=== PATIENT | female | born 1995 | race Caucasian/White ===

== ENCOUNTER 2020-10-18 16:28 | Emergency (ER) | payer OTHER, SELFPAY ==
[2020-10-18 16:36] VITALS: BP 110/68; PULSE 116; RESP 18; TEMP 36.8; O2SAT 99
--- NOTE | 2020-10-18 17:00 | ED.EAR ---
HPI - Ear Problem General Chief complaint: Ear Stated complaint: Ear pain Time Seen by Provider: 10/18/20 17:00 Source: patient Mode of arrival: ambulatory Limitations: no limitations History of Present Illness HPI Narrative: Landy Landaverde is a 24 yo female who comes to express care with c/o Rear pain x 2 weeks - has been using q tips and cotton balls to clean out ear.States left ear has discharge; right is considerably is improved Related Data Allergies Allergy/AdvReac Type Severity Reaction Status Date / Time codeine Allergy Swelling Verified 10/18/20 16:47 of Lip/Tongue/Throat sertraline [From Zoloft] AdvReac Other Verified 10/18/20 16:48 Review of Systems Review of Systems: Narrative: CONSTITUTIONAL: Denies fever, chills, sweats. EYES: Denies visual changes, redness, discharge. ENT: Denies rhinorrhea, congestion, sore throat, right otalgia. Left ear healing CARDIOVASCULAR: Denies chest pain, palpitations, edema. RESPIRATORY: Denies dyspnea, wheezing, cough GASTROINTESTINAL: Denies abdominal pain, nausea, vomiting, diarrhea. GENITOURINARY: Denies dysuria, hematuria, abnormal discharge SKIN: Denies rash or itching. NEUROLOGIC: Denies numbness, or focal weakness. PSYCHIATRIC: Denies anxiety or depression. PMFSH Past Medical History Medical History (Updated 10/18/20 @ 17:19 by Maureen Carranza CNP) Alcoholism Family History Family History Other Diabetes mellitus Hypertension Social History Social History (Updated 10/18/20 @ 17:20 by Maureen Carranza CNP) Smoking packs per day: 0.5 Smoking cigarettes per day: 10.0 Smoking status: Current every day smoker Alcohol intake: former Alcohol use details: recovering alcoholic Comments At time of signature, I agree with nursing past medical, surgical, social and family history. There is no relevant family history pertinent to the presenting complaint. Exam Narrative: Exam Narrative: GENERAL: This is a well-nourished, well-developed patient, in mild distress. HEAD: normocephalic, atraumatic. EYES: PERRL. Sclera clear/white. Vision is grossly intact. EARS: External ears normal, left ear canal is reddened right ear canal has large piece of cotton stuffed up in the canal causing pain and drainage. Unable to visualize right TM. Hearing grossly intact. NOSE: External nose normal without nasal discharge, nares without redness, no rhinorrhea. THROAT: Mucous membranes moist, NECK: Neck supple, CARDIOVASCULAR: Regular rate and rhythm without murmurs, gallops, or rubs. RESPIRATORY: Clear to auscultation. Breath sounds equal bilaterally. No wheezes, rales, or rhonchi. GASTROINTESTINAL: Abdomen soft, SKIN: warm, intact with no suspicious lesions or rash, good texture and turgor. NEURO: awake, alert, and oriented to person, place and time. There were no obvious focal neurologic abnormalities. Steady gait EXTREMITIES: Normal range of motion. BACK: Nontender without deformity Course Course Emergency Course: Patient with complaints of pain in the right ear states states that both ears have been hurting her the left is improving On exam patient has large piece of cotton stepped in right ear-we will flush out Educated patient on not sticking Q-tips and cotton balls in the ears given some antibiotic [id number] with PCP Vital Signs Vital signs: Vital Signs Temperature 98.2 F 10/18/20 16:36 Pulse Rate 116 H 10/18/20 16:36 Respiratory Rate 18 10/18/20 16:36 Blood Pressure 110/68 10/18/20 16:36 Pulse Oximetry 99 10/18/20 16:36 Temperature 98.2 F 10/18/20 16:36 Pulse Rate 116 H 10/18/20 16:36 Respiratory Rate 18 10/18/20 16:36 Blood Pressure 110/68 10/18/20 16:36 Pulse Oximetry 99 10/18/20 16:36 Procedures FB Removal Ear Foreign Body #1: Foreign Body Removal Date: 10/18/20 Foreign Body Removal Time: 17:00 Location: ear c
== END 2020-10-18 17:28 | disposition home or self-care (01) ==
PROVIDERS: Emergency Provider Nurse Practitioner
DX: T16.1XXA Foreign body in right ear, initial encounter (principal); X58.XXXA Exposure to other specified factors, initial encounter; F17.210 Nicotine dependence, cigarettes, uncomplicated
CPT/HCPCS: 99213; G0463